=== PATIENT | female | born 1985 | race Hispanic/Latino ===

== ENCOUNTER 2020-08-30 17:55 | Emergency (ER) | payer OTHER ==
[2020-08-30] MEDS ORDERED: Ketorolac Tromethamine 30 MG/ML VIAL ONE (18:57)
== END 2020-08-30 20:00 | disposition home or self-care (01) ==
LOC: ERS 17:55
DX: S40.011A Contusion of right shoulder, initial encounter (principal); M25.551 Pain in right hip; Z87.891 Personal history of nicotine dependence; V89.2XXA Person injured in unspecified motor-vehicle accident, traffic, initial encounter
CPT/HCPCS: 96372; J1885